=== PATIENT | male | born 1985 | race African-American/Black ===

== ENCOUNTER 2017-10-22 09:55 | Emergency (ER) | payer OTHER ==
[~2017-10-22] VITALS: Ht 172.7 cm; Wt 75.7 kg
[2017-10-22 10:01] VITALS: BP 143/86
[2017-10-22] MEDS ORDERED: IBUPROFEN 200 MG TABLET ONE (10:42)
[2017-10-22] MEDS ORDERED: IBUPROFEN 200 MG TABLET PO ONE (11:00)
[2017-10-22 11:05] LABS: RAPID INFLUENZA A Negative (Negative); RAPID INFLUENZA B Negative (Negative)
== END 2017-10-22 11:54 | disposition home or self-care (01) ==
LOC: ED 10:44
DX: B34.9 Viral infection, unspecified (principal)
CPT/HCPCS: 87400; 99284